=== PATIENT | female | born 1965 | race Caucasian/White ===

== ENCOUNTER 2024-11-28 08:55 | Outpatient (REF) | payer BC, SELFPAY ==
--- NOTE | 2024-11-28 08:42 | TONSIL_PTH ---
PATIENT: Akila Breen LOC: [facility] U#:[id number] AGE/SX: 59/F ROOM: RE11/28/[address]: Javier Cota MD : 1965 BED: DIS: 11/28/2024 SPEC #: [id number] RECD: 11/28/24 16:55 STATUS: KOBE RERenetta #: [id number] JOSELYN: 11/28/24 08:[address]: Javier Cota DEPT: Surgical Specimen RECD BY: Roselyn Reynoso Tissues: 1 - TONSIL BIOPSY Procedures: GROSS AND MICRO LEVEL 4 Comments: [id number]
== END 2024-11-28 08:56 | disposition home or self-care (01) ==
LOC: LBN 08:55
PROVIDERS: PCP Physician Assistant; Visit Provider Otolaryngology
DX: D10.4 Benign neoplasm of tonsil (principal); J35.8 Other chronic diseases of tonsils and adenoids
CPT/HCPCS: 88305